=== PATIENT | male | born 1960 | race African-American/Black ===

== ENCOUNTER → 2017-02-07 | Outpatient (CLI) | payer OTHER ==
--- NOTE | 2017-02-07 14:05 | KCIC ---
EXAM: Cervical spine, 5 views. HISTORY: Left upper extremity radiculopathy. COMPARISON: None. FINDINGS: Frontal, lateral, bilateral oblique and odontoid views of the cervical spine are obtained. The vertebral bodies are normal in height and the disc spaces are preserved. There is no listhesis. There is no significant foraminal or central canal stenosis. IMPRESSION: No acute osseous finding. Electronically signed by: Molly Goldstein MD (02/07/2017 2:02 PM) [id number]
== END | disposition home or self-care (01) ==
LOC: KCIC 13:30
PROVIDERS: ATTEND Family Medicine
DX: G54.2 Cervical root disorders, not elsewhere classified (principal)
CPT/HCPCS: 72050

== ENCOUNTER → 2017-04-10 | Outpatient (CLI) | payer OTHER | END | disposition home or self-care (01) | LOC: KCIC MRI 16:15 | DX: M48.02 Spinal stenosis, cervical region (principal); M50.223 Other cervical disc displacement at C6-C7 level; M12.88 Other specific arthropathies, not elsewhere classified, other specified site; M47.892 Other spondylosis, cervical region; M25.78 Osteophyte, vertebrae | CPT/HCPCS: 72141 ==